=== PATIENT | female | born 1995 | race Two or more races ===

== ENCOUNTER 2017-04-01 14:51 | Emergency (ER) | payer BC ==
[~2017-04-01] VITALS: Ht 160 cm; Wt 63.5 kg
--- NOTE | 2017-04-01 15:00 | NUR ---
AAOX3, SEND BY DOCTOR: LEFT ELBOW PAIN; PELVIC; ABDOMINAL PAIN; L FLANKL PAIN; VB;~ 1 MONTH. SKIN IS WARM AND DRY. RESP IS EVEN AND UNLABORED WITH NAD NOTED. SKIN IS WARM AND DRY. AWAITING MD FOR EVAL.
[2017-04-01 15:45] LABS: APPEARANCE,URINE Clear (CLEAR); BILIRUBIN,URINE Negative (NEGATIVE); BLOOD, URINE Trace-lysed Ery/uL (NEGATIVE); COLOR,URINE Yellow (YELLOW); KETONES,URINE Negative (NEGATIVE); LEUKOCYTE ESTERASE ,URINE Negative (NEGATIVE); NITRITE, URINE Negative (NEGATIVE); PROTEIN,URINE Negative (NEGATIVE); UGLUCOSE Negative (NEGATIVE); UROBILINOGEN,URINE 0.2 EU/dL (0.2)
--- NOTE | 2017-04-01 15:57 | NUR ---
ULTRASOUND IN PROGRESS AT BS
[2017-04-01 15:59] LABS: WBC,URINE 0-2 /HPF (0-3)
[2017-04-01 16:01] LABS: BACTERIA,URINE Rare /HPF (None Seen); SQUAMOUS EPITHELIAL CELL,UR Few /HPF (None Seen)
--- NOTE | 2017-04-01 16:05 | NUR ---
Symone molina in ED - 04/01/17 at 1631 by ADAN VERBALLY ORDERED BY DR MCKINLEY MORPHINE 4MG AND ZOFRAN 4MG IVP R HAND GIVEN.
--- NOTE | 2017-04-01 16:10 | NUR ---
DR MCKINLEY AT
--- NOTE | 2017-04-01 16:22 | NUR ---
DR MCKINLEY AT FOR AN UPDATE AND RE-EVAL.
--- NOTE | 2017-04-01 16:25 | NUR ---
Patient discharged to home in stable condition. Written and verbal after care instructions given. Patient verbalizes understanding of instruction.
[2017-04-01 16:26] VITALS: BP 114/67
== END 2017-04-01 16:30 | disposition home or self-care (01) ==
LOC: ER 14:53
DX: N92.0 Excessive and frequent menstruation with regular cycle (principal); M25.522 Pain in left elbow
CPT/HCPCS: 73070; 76856; 81001; 84703; 99285; A4606; Z7610; 81000-TC

== ENCOUNTER 2023-08-08 10:01 | Emergency (ER) | payer BC, MEDICAID, OTHER ==
[~2023-08-08] VITALS: Ht 160 cm; Wt 64.9 kg
[2023-08-08] MEDS ORDERED: CYCL5TAB PO (10:57)
[2023-08-08] MEDS ORDERED: LIDO30AD10 TP (10:57)
[2023-08-08] MEDS ORDERED: IBUP-1955 PO (10:57)
[2023-08-08 11:35] VITALS: BP 130/85; TEMP 98.2; O2SAT 99
== END 2023-08-08 11:51 | disposition home or self-care (01) ==
LOC: ER 10:15
DX: S46.812A Strain of other muscles, fascia and tendons at shoulder and upper arm level, left arm, initial encounter (principal); S09.8XXA Other specified injuries of head, initial encounter; M54.50 Low back pain, unspecified; Z79.899 Other long term (current) drug therapy; Z60.2 Problems related to living alone; V89.2XXA Person injured in unspecified motor-vehicle accident, traffic, initial encounter; Y93.89 Activity, other specified; Y92.89 Other specified places as the place of occurrence of the external cause; Y99.8 Other external cause status